=== PATIENT | male | born 1945 | race Hispanic/Latino ===

== ENCOUNTER 2018-05-13 06:21 | Emergency (ER) | payer MEDICARE, OTHER ==
[2018-05-13 06:23] VITALS: BMI 25.1
[2018-05-13 07:00] VITALS: RESP 18
[2018-05-13 07:26] LABS: BASO # 0.01 K/mm3 (0.0-2.0); BASO % 0.1 % (0.0-3.0); EOS % 0.4 % (1.5-5.0); GRAN # 7.19 (1.4-6.5); GRAN % 87.1 % (50.0-68.0); HEMOGLOBIN 15.4 g/dL (14.0-18.0); LYMPH # 0.5 (1.2-3.4); LYMPH % 6.1 % (22.0-35.0); MEAN CELL VOLUME 88.6 fl (80.0-105.0); MEAN CORPUSCULAR HEMOGLOBIN 31.3 pg (25.0-35.0); MEAN CORPUSCULAR HGB CONC 35.3 g/dl (31.0-37.0); MEAN PLATELET VOLUME 11.4 fl (7.0-11.0); MONO # 0.5 (0.1-0.6); MONO % 6.3 % (1.0-6.0); RBC 4.92 10^6/uL (3.5-6.1); RED CELL DISTRIBUTION WIDTH 12.7 % (11.5-14.5); WHITE BLOOD COUNT 8.3 10^3/ul (4.5-11.0)
[2018-05-13 07:27] LABS: URINE BILIRUBIN NEGATIVE (NEGATIVE); URINE BLOOD NEGATIVE (NEGATIVE); URINE GLUCOSE (UA) 100 mg/dL (NEGATIVE); URINE LEUKOCYTE ESTERASE NEGATIVE Leu/uL (NEGATIVE); URINE PROTEIN NEGATIVE mg/dL (<30 mg/dL); URINE UROBILINOGEN 0.2 E.U./dL (<1 E.U./dL)
[2018-05-13 07:28] LABS: URINE APPEARANCE CLEAR (CLEAR); URINE COLOR YELLOW (YELLOW)
--- NOTE | 2018-05-13 07:28 | ED PDOC ---
Arrival/HPI - General Historian: Patient - History of Present Illness Time/Duration: 4-6 hours Symptom Onset: Sudden Symptom Course: Unchanged, Worsening Quality: Aching, Pressure, Throbbing Severity Level: 10 Activities at Onset: Rest <Sd Uribe - Last Filed: 05/13/18 11:48> - General Historian: Patient <Tayo Alonso - Last Filed: 05/13/18 19:43> - General Chief Complaint: Male Genitourinary Time Seen by Provider: 05/13/18 06:23 - History of Present Illness Narrative History of Present Illness (Text): 05/13/18 08:15 Patient is a 72 year old male with PMH of HTN, HLD, and PTSD who presents to ED with worsening R flank pain. He states that about 130 last night it felt as if "a basketball" was bulging out of his R side. He describes the pain as a throbbing, pressure-type sensation that is worse when he turns on his right side or inhales/exhales. The pain radiates to his R mid-abdomen and R groin. He states the pain is constant and worsening since it started last night. He also endorses nausea, vomiting x 6 since last night, diarrhea since last night. He denies fever, chills, CP, SOB, cough, wheezing, trouble urinating, dysuria, hematuria, increased frequency, or any other symptoms. (Sd Uribe) Past Medical History - Provider Review Nursing Documentation Reviewed: Yes - Tetanus Immunization Tetanus Immunization: Up to Date - Cardiac Hx Cardiac Disorders: Yes Hx Hypertension: Yes - Pulmonary Hx Respiratory Disorders: No Hx Tuberculosis: No - Neurological Hx Neurological Disorder: No HX Cerebrovascular Accident: No Hx Seizures: No - HEENT Hx HEENT Disorder: Yes Hx Cataracts: Yes (BILATERAL CATARACT SURGERY) - Renal Hx Renal Disorder: No - Endocrine/Metabolic Hx Endocrine Disorders: No - Hematological/Oncological Hx Blood Disorders: No Hx Cancer: No - Integumentary Hx Dermatological Disorder: No - Musculoskeletal/Rheumatological Hx Musculoskeletal Disorders: No Hx Falls: Yes (RECENT FALL TODAY FROM TAKING MULTIPLE MEDICATION) - Gastrointestinal Hx Gastrointestinal Disorders: No - Genitourinary/Gynecological Hx Genitourinary Disorders: No Hx Sexually Transmitted Diseases: No - Psychiatric Hx Psychophysiologic Disorder: Yes (PTSD) Hx Depression: Yes Hx Emotional Abuse: No Hx Post Traumatic Stress Disorder: Yes Hx Physical Abuse: No Hx Substance Use: Yes (RX DRUGS) - Past Surgical History Past Surgical History: No Previous - Anesthesia Hx Anesthesia: Yes - Suicidal Assessment Feels Threatened In Home Enviroment: No <GavinTayo Last Filed: 05/13/18 19:43> Family/Social History - Physician Review Nursing Documentation Reviewed: Yes Family/Social History: No Known Family HX Smoking Status: Current Some Days Smoker Hx Alcohol Use: Yes Hx Substance Use: Yes (RX DRUGS) <GavinYasminEsperanza - Last Filed: 05/13/18 19:43> Allergies/Home Meds <Sd Uribe - Last Filed: 05/13/18 11:48> <GavinYasminEsperanza - Last Filed: 05/13/18 19:43> Allergies/Adverse Reactions: Allergies No Known Allergies Allergy (Verified 05/13/18 07:37) Home Medications: Home Meds Medication Instructions Recorded Confirmed Bupropion HCl [Bupropion] 100 mg PO DAILY 06/09/13 05/13/18 Trazodone Hydrochloride [Trazodone] 150 mg PO DAILY 06/09/13 05/13/18 FLUoxetine [Prozac] 20 mg PO TID 05/13/18 05/13/18 Review of Systems - Physician Review All systems were reviewed & negative as marked: Yes - Review of Systems Constitutional: absent: Weight Change, Fevers Eyes: absent: Vision Changes, Photophobia ENT: absent: Voice Changes, Sore Throat, Rhinorrhea Respiratory: absent: SOB, Cough, Wheezing Cardiovascular: absent: Chest Pain, NORIEGA Gastrointestinal: Diarrhea, Nausea, Vomiting Genitourinary Male: absent: Dysuria, Frequency, Hematuria, Urinary Output Changes Musculoskeletal: Back Pain. absent: Arthralgias Skin: absent: Rash, Pruritis Neurological: absent: Headache, Dizziness Endocrine: absent: Diaphoresis Hemo/Lymphatic: absent: Adenopathy Psychiatric: absent: Anxiety, Depression <Sd Uribe - Last Filed: 05/13/18 11:48> - Physician Review All systems were reviewed & negative as marked: Yes <Yasmin AlonsoChiara - Last Filed: 05/13/18 19:43> Physical Exam Appearance: Positive for: Ill-Appearing, Uncomfortable Pain Distress: Severe Mental Status: Positive for: Alert and Oriented X 3 - Systems Exam Head: Present: Atraumatic, Normocephalic Pupils: Present: PERRL Extroacular Muscles: Present: EOMI Ears: Present: Normal Mouth: Present: Dry Pharnyx: Present: Normal. No: ERYTHEMA, EXUDATE Nose (External): Present: Atraumatic Neck: Present: Normal Range of Motion. No: JVD Respiratory/Chest: Present: Clear to Auscultation. No: Wheezes, Rales, Rhonchi Cardiovascular: Present: Regular Rate and Rhythm, Normal S1, S2. No: Murmurs, Rub, Gallop Abdomen: Present: Tenderness (tenderness greatest to RLQ and R flank). No: Rebound, Guarding, Mass/Organomegaly Back: Present: Normal Inspection. No: CVA Tenderness Upper Extremity: Present: Normal Inspection. No: Cyanosis, Edema Lower Extremity: Present: Normal Inspection. No: Edema Skin: Present: Warm, Dry. No: Rashes Psychiatric: Present: Alert, Oriented x 3 <Sd Uribe - Last Filed: 05/13/18 11:48> Vital Signs Reviewed: Yes Temperature: Afebrile Blood Pressure: Hypertensive Pulse: Regular Respiratory Rate: Normal <Tayo Alonso - Last Filed: 05/13/18 19:43> Vital Signs Temp Pulse Resp BP Pulse Ox 05/13/18 11:39 98.2 F 82 18 135/90 99 05/13/18 10:00 98.6 F 82 18 132/90 99 05/13/18 08:39 64 18 138/96 H 100 05/13/18 06:46 97.9 F 65 18 143/105 H 100 Medical Decision Making - Lab Interpretations I have reviewed the lab results: Yes Interpretation: All labs normal (no hematuria) - EKG Interpretation Interpreted by ED Physician: Yes (normal sinus) Type: 12 lead EKG <Sd Uribe - Last Filed: 05/13/18 11:48> <Tayo Alonso - Last Filed: 05/13/18 19:43> ED Course and Treatment: 05/13/18 11:10 Patient found to have [address] with mild hydronephrosis. He reports his pain has improved s/p morphine and toradol. Patient states that he would like to follow up with urologist at the [facility] since this is where his PMD and other physicians are located. Patient feels he will be able to go home with pain medicine. Will plan to discharge on percocet, cipro, flomax. He should follow up with urology follow up within 1 week. 05/13/18 11:33 Patient's pain has improved. Will give a single dose of percocet in ED. Sending him home with prescriptions for cipro, flomax, and percocet. (Sd Uribe) 05/13/18 07:30 Impression: Judd Keys is a 72 year old male who presents to the Emergency department for right flank pain. In agreement with resident note, which includes further HPI details. Patient was seen and evaluated with resident, came up with plan and treatment together. Plan: -- Labs -- CT of A/P, PO & IV contrast -- Toradol -- Morphine -- Zofran -- IV fluids -- Urine culture -- Urinalysis -- Reassess and disposition Progress Notes: (Tayo Alonso) - Lab Interpretations Lab Results: 05/13/18 07:20 05/13/18 07:20 Lab Results 05/13/18 07:20: Sodium 141, Potassium 4.1, Chloride 101, Carbon Dioxide 28, Anion Gap 16, BUN 20, Creatinine 1.1, Est GFR ( Amer) > 60, Est GFR (Non- Af Amer) > 60, Random Glucose 148 H, Calcium 9.4, Total Bilirubin 0.5, AST 35, ALT 30, Alkaline Phosphatase 87, Total Protein 7.4, Albumin 4.7, Globulin 2.7, Albumin/Globulin Ratio 1.8 05/13/18 07:20: Urine Color Yellow, Urine Appearance Clear, Urine pH 8.0, Ur Specific Gower 1.010, Urine Protein Negative, Urine Glucose (UA) 100 H, Urine Ketones Negative, Urine Blood Negative, Urine Nitrate Negative, Urine Bilirubin Negative, Urine Urobilinogen 0.2, Ur Leukocyte Esterase Negative 05/13/18 07:20: WBC 8.3, RBC 4.92, Hgb 15.4, Hct 43.6, MCV 88.6, MCH 31.3, MCHC 35.3, RDW 12.7, Plt Count 167, MPV 11.4 H, Gran % 87.1 H, Lymph % (Auto) 6.1 L, [place] % (Auto) 6.3 H, Eos % (Auto) 0.4 L, Baso % (Auto) 0.1, Gran # 7.19 H, Lymph # (Auto) 0.5 L, [place] # (Auto) 0.5, Eos # (Auto) 0.0, Baso # (Auto) 0.01 - RAD Interpretation Radiology Orders: 05/13/18 07:43 ABD PELVIS PO & IV CONTRAST [CT] Stat - Medication Orders Current Medication Orders: Discontinued Medications Ciprofloxacin (Cipro) 500 mg PO ONCE STA PRN Reason: Protocol Stop: 05/13/18 11:08 Last Admin: 05/13/18 11:16 Dose: 500 mg Sodium Chloride (Sodium Chloride 0.9%) 1,000 mls @ 999 mls/hr IV .Q1H1M STA Stop: 05/13/18 08:46 Last Admin: 05/13/18 08:22 Dose: 999 mls/hr eMAR Start Stop Document 05/13/18 08:22 EWO (Rec: 05/13/18 08:22 [facility] [id number]) Intravenous Solution Start Date 05/13/18 Start Time 08:22 End Date 05/13/18 End time 09:22 Total Infusion Time 60 Ketorolac Tromethamine (Toradol) 30 mg IVP STAT STA Stop: 05/13/18 08:13 Last Admin: 05/13/18 08:21 Dose: 30 mg MAR Pain Assessment Document 05/13/18 08:21 EWO (Rec: 05/13/18 08:22 [facility] [id number]) Pain Reassessment Is this a pain reassessment? Yes Sleep Is patient sleeping during reassessment? No Pain Scale Used Pain Scale Used Numeric IVP Administration Document 05/13/18 08:21 EWO (Rec: 05/13/18 08:22 [facility] [id number]) Charges for Administration # of IVP Administrations 1 Morphine Sulfate (Morphine) 4 mg IVP STAT STA Stop: 05/13/18 07:37 Last Admin: 05/13/18 07:44 Dose: 4 mg MAR Pain Assessment Document 05/13/18 07:44 EWO (Rec: 05/13/18 07:44 [facility] [id number]) Pain Reassessment Is this a pain reassessment? No Sleep Is patient sleeping during reassessment? No Presence of Pain Presence of Pain Yes Pain Scale Used Pain Scale Used Numeric Location Left, Right or Bilateral Right Upper or Lower Lower Pain Location Body Site Abdomen IVP Administration Document 05/13/18 07:44 EWO (Rec: 05/13/18 07:44 [facility] [id number]) Charges for Administration # of IVP Administrations 1 Morphine Sulfate (Morphine) 2 mg IVP STAT STA Stop: 05/13/18 10:47 Last Admin: 05/13/18 11:02 Dose: 2 mg MAR Pain Assessment Document 05/13/18 11:02 EWO (Rec: 05/13/18 11:03 [facility] [id number]) Pain Reassessment Is this a pain reassessment? Yes Sleep Is patient sleeping during reassessment? No Presence of Pain Presence of Pain Yes Pain Scale Used Pain Scale Used Numeric Location Left, Right or Bilateral Right Upper or Lower Lower Pain Location Body Site Abdomen Description Description Constant Intensity of Pain at present 4 IVP Administration Document 05/13/18 11:02 EWO (Rec: 05/13/18 11:03 [facility] [id number]) Charges for Administration # of IVP Administrations 1 Ondansetron HCl (Zofran Inj) 4 mg IVP STAT STA Stop: 05/13/18 07:23 Last Admin: 05/13/18 07:44 Dose: 4 mg IVP Administration Document 05/13/18 07:44 EWO (Rec: 05/13/18 07:44 [facility] [id number]) Charges for Administration # of IVP Administrations 1 Oxycodone/Acetaminophen (Percocet 2.5/325 Mg Tab) 1 tab PO STAT STA Stop: 05/13/18 11:31 Last Admin: 05/13/18 11:34 Dose: 1 tab Tamsulosin HCl (Flomax) 0.4 mg PO STAT STA Stop: 05/13/18 10:47 Last Admin: 05/13/18 11:02 Dose: 0.4 mg <Sd Uribe - Last Filed: 05/13/18 11:48> - PA / CEMENT MIXER / Resident Statement / has reviewed & agrees with the documentation as recorded. / has examined the patient and agrees with the treatment plan. - Scribe Statement The provider has reviewed the documentation as recorded by the Scribe <Tayo Alonso - Last Filed: 05/13/18 19:43> - Scribe Statement Tali Kerr All medical record entries made by the Scribe were at my direction and personally dictated by me. I have reviewed the chart and agree that the record accurately reflects my personal performance of the history, physical exam, medical decision making, and the department course for this patient. I have also personally directed, reviewed, and agree with the discharge instructions and disposition. (Gavin,I'Melitonalethea) Disposition/Present on Arrival - Present on Arrival Any Indicators Present on Arrival: No History of DVT/PE: No History of Uncontrolled Diabetes: No Urinary Catheter: No History of Decub. Ulcer: No - Disposition Have Diagnosis and Disposition been Completed?: Yes Disposition Time: 11:24 Patient Plan: Discharge <Sd Uribe - Last Filed: 05/13/18 11:48> - Present on Arrival History of DVT/PE: No History of Uncontrolled Diabetes: No Urinary Catheter: No History of Decub. Ulcer: No History Surgical Site Infection Following: None <Tayo Alonso - Last Filed: 05/13/18 19:43> - Disposition Diagnosis: Nephrolithiasis Disposition: HOME/ ROUTINE Condition: FAIR Discharge Instructions (ExitCare): Kidney Stones (DC) Additional Instructions: We hope that your pain from the stone will improve soon with the medications we' ve given you. We've given you a referral for a local urologist to follow up with. If you'd like to go to the [facility] instead, please set up a urology appointment with them as soon as possible. Be sure to bring a copy of the report of the CT scan of your abdomen we gave you to your urology appointment. We've given you antibiotics to prevent infection since there is fluid in your right kidney from the stone. Please take these twice a day for 10 days. Prescriptions: Ciprofloxacin [Cipro] 500 mg PO Q12H 10 Days tab oxyCODONE/Acetaminophen [Percocet 5/325 mg Tab] 1 ea PO Q6 PRN #18 tab PRN Reason: Pain, Severe (8-10) Psyllium [Hydrocil Instant] 1 each PO BID PRN #20 packet PRN Reason: constipation Sennosides [Senna] 8.6 mg PO HS PRN #20 tablet PRN Reason: Constipation Tamsulosin [Flomax] 0.4 mg PO DAILY 14 Days cap Referrals: Mahsa Eastman MD [Staff Provider] - Follow up with primary Forms: [employer] (Yoruba)
[2018-05-13] MEDS ORDERED: Morphine 4 mg/ml ISec IVP STA (07:36)
[2018-05-13 07:41] LABS: ALB/GLOB RATIO 1.8 (1.1-1.8); ALBUMIN 4.7 g/dL (3.0-4.8); ALT/SGPT 30 U/L (7-56); AST/SGOT 35 U/L (17-59); BLOOD UREA NITROGEN 20 mg/dL (7-21); CALCIUM 9.4 mg/dL (8.4-10.5); GFR AFRICAN-AMERICAN > 60; GFR NON-AFRICAN AMERICAN > 60
[2018-05-13] MEDS ORDERED: Sodium Chloride 0.9% 1,000 ML IV STA (07:46)
[2018-05-13] MEDS ORDERED: Iohexol 240 (50 ml) ONE (08:22)
[2018-05-13] MEDS ORDERED: Iohexol 350 MG/100 ML VIAL ONE (08:23)
[2018-05-13] MEDS ORDERED: Morphine 2 mg/ml ISec IVP STA (10:46)
--- NOTE | 2018-05-13 10:55 | CT ---
Date of service: 05/13/2018 PROCEDURE: CT Abdomen and Pelvis with contrast HISTORY: rt sided acute abdomen COMPARISON: None. TECHNIQUE: Contrast dose: 100 cc of Omni 350 Radiation dose: Total exam DLP = 419 mGy-cm. This CT exam was performed using one or more of the following dose reduction techniques: Automated exposure control, adjustment of the mA and/or kV according to patient size, and/or use of iterative reconstruction technique. FINDINGS: LOWER THORAX: Unremarkable. LIVER: Unremarkable. No gross lesion or ductal dilatation. GALLBLADDER AND BILE DUCTS: Unremarkable. PANCREAS: Unremarkable. No gross lesion or ductal dilatation. SPLEEN: Unremarkable. ADRENALS: Unremarkable. No mass. KIDNEYS AND URETERS: There is a 3 mm stone in the right UVJ. There is a large amount of perinephric stranding and fluid in the right perinephric space. There is mild hydronephrosis. The findings are seen on axial image 157 series 3 and coronal image 70. VASCULATURE: Unremarkable. No aortic aneurysm. BOWEL: Unremarkable. No obstruction. No gross mural thickening. APPENDIX: Normal appendix. PERITONEUM: Unremarkable. No free fluid. No free air. LYMPH NODES: Unremarkable. No enlarged lymph nodes. BLADDER: Unremarkable. REPRODUCTIVE: Unremarkable. BONES: No acute fracture. OTHER FINDINGS: None. IMPRESSION: There is a 3 mm obstructing stone in the right UVJ. There is a large amount of perinephric stranding and fluid in the right perinephric space. There is mild hydronephrosis.
[2018-05-13 11:13] VITALS: PULSE 82; O2SAT 99
[2018-05-13] MEDS ORDERED: Oxycodone/Acetaminophen 2.5/325 mg Tab PO STA (11:30)
[2018-05-13 11:47] VITALS: BP 135/90; TEMP 98.2
--- NOTE | 2018-05-14 05:27 | CARD ---
APPROVED REPORT Date of service: 05/13/2018 EKG Measurement Heart [id number] 142P [id number] <Conclusion> Ectopic atrial rhythm Abnormal ECG
== END 2018-05-13 11:39 | disposition home or self-care (01) ==
LOC: ED 06:21
DX: N20.0 Calculus of kidney (principal); E78.5 Hyperlipidemia, unspecified; I10 Essential (primary) hypertension
CPT/HCPCS: 74177; 80053; 81003; 85025; 87086; 93005; 96361; 96374; 96375; 96376; 99284; J1885; J2270; J2405; J7030; Q9966; Q9967

== ENCOUNTER 2019-01-24 23:21 | Emergency (ER) | payer MEDICARE, OTHER ==
[2019-01-24 23:22] VITALS: BMI 25.8
--- NOTE | 2019-01-24 23:43 | ED PDOC ---
Arrival/HPI - General Chief Complaint: Back Pain Time Seen by Provider: 01/24/19 23:25 Historian: Patient - History of Present Illness Narrative History of Present Illness (Text): 01/24/19 23:41 73 year old male, whose past medical history includes HTN, HLD, and PTSD, presents to the emergency department complaining of left-side ribcage pain that began 1 week ago s/p trip and fall down the stairs. Patient reports the pain worsens with deep breaths. Patient states he was carrying the laundry basket down the stairs when he tripped and fell. Patient denies any head injuries. Patient is able to ambulate without any difficulty. Patient denies any fever, chills, chest pain, shortness of breath, nausea, vomiting, diarrhea, urinary symptoms, back pain, neck pain, headache, dizziness, or any other complaints. Time/Duration: 1 week Symptom Onset: Gradual Symptom Course: Worsening Activities at Onset: Light Context: Tripped Past Medical History - Provider Review Nursing Documentation Reviewed: Yes - Tetanus Immunization Tetanus Immunization: Up to Date - Cardiac Hx Cardiac Disorders: Yes Hx Hypertension: Yes - Pulmonary Hx Respiratory Disorders: No Hx Tuberculosis: No - Neurological Hx Neurological Disorder: No HX Cerebrovascular Accident: No Hx Seizures: No - HEENT Hx HEENT Disorder: Yes Hx Cataracts: Yes (BILATERAL CATARACT SURGERY) - Renal Hx Renal Disorder: No - Endocrine/Metabolic Hx Endocrine Disorders: No - Hematological/Oncological Hx Blood Disorders: No Hx Cancer: No - Integumentary Hx Dermatological Disorder: No - Musculoskeletal/Rheumatological Hx Musculoskeletal Disorders: No Hx Falls: Yes (RECENT FALL TODAY FROM TAKING MULTIPLE MEDICATION) - Gastrointestinal Hx Gastrointestinal Disorders: No - Genitourinary/Gynecological Hx Genitourinary Disorders: No Hx Sexually Transmitted Diseases: No - Psychiatric Hx Psychophysiologic Disorder: Yes (PTSD) Hx Depression: Yes Hx Emotional Abuse: No Hx Post Traumatic Stress Disorder: Yes Hx Physical Abuse: No Hx Substance Use: Yes (RX DRUGS) - Past Surgical History Past Surgical History: No Previous - Anesthesia Hx Anesthesia: Yes - Suicidal Assessment Feels Threatened In Home Enviroment: No Family/Social History - Physician Review Nursing Documentation Reviewed: Yes Family/Social History: No Known Family HX Smoking Status: Current Some Days Smoker Hx Alcohol Use: Yes Hx Substance Use: Yes (RX DRUGS) Allergies/Home Meds Allergies/Adverse Reactions: Allergies No Known Allergies Allergy (Verified 01/24/19 23:23) Home Medications: Home Meds Medication Instructions Recorded Confirmed Fluoxetine HCl 20 mg PO DAILY 01/24/19 01/24/19 Fluoxetine HCl 60 mg PO DAILY 01/24/19 01/24/19 Omeprazole 20 mg PO DAILY 01/24/19 01/24/19 Rosuvastatin Calcium [Crestor] 10 mg PO DAILY 01/24/19 01/24/19 Trazodone HCl 200 mg PO HS PRN 01/24/19 01/24/19 amLODIPine [Norvasc] 5 mg PO DAILY 01/24/19 01/24/19 Review of Systems - Physician Review All systems were reviewed & negative as marked: Yes - Review of Systems Constitutional: absent: Fevers, Other (chills) Gastrointestinal: absent: Abdominal Pain, Diarrhea, Nausea, Vomiting Musculoskeletal: Other (left-side rib cage pain). absent: Back Pain, Neck Pain Neurological: absent: Headache, Dizziness Physical Exam Vital Signs Reviewed: Yes Vital Signs Temp Pulse Resp BP Pulse Ox 01/24/19 23:32 98.2 F 64 15 136/80 96 Temperature: Afebrile Blood Pressure: Normal Pulse: Regular Respiratory Rate: Normal Appearance: Positive for: Well-Appearing, Non-Toxic, Comfortable Pain Distress: None Mental Status: Positive for: Alert and Oriented X 3 - Systems Exam Head: Present: Atraumatic, Normocephalic Pupils: Present: PERRL Extroacular Muscles: Present: EOMI Conjunctiva: Present: Normal Mouth: Present: Moist Mucous Membranes Neck: Present: Normal Range of Motion Respiratory/Chest: Present: Clear to Auscultation, Good Air Exchange, Tender to Palpation (left side rib tenderness). No: Respiratory Distress, Accessory Muscle Use Cardiovascular: Present: Regular Rate and Rhythm, Normal S1, S2. No: Murmurs Abdomen: No: Tenderness, Distention, Peritoneal Signs Back: Present: Normal Inspection Upper Extremity: Present: Normal Inspection. No: Cyanosis, Edema Lower Extremity: Present: Normal Inspection. No: Edema Neurological: Present: GCS=15, CN II-XII Intact, Speech Normal Skin: Present: Warm, Dry, Normal Color. No: Rashes Psychiatric: Present: Alert, Oriented x 3, Normal Insight, Normal Concentration Medical Decision Making ED Course and Treatment: ubaldo disla pneumo 01/24/19 23:43 Impression: 73 year old male presents complaining of left-side ribcage pain s/p fall down the stairs. Plan: -- Toradol -- rib left chest x-ray -- CT chest w/ IV contrast -- Reassess and disposition Prior Visits: Notes and results from previous visits were reviewed. Progress Notes: CXR Impression: As read by me, Negative for fractures. No active disease. CT OF THE CHEST WITH IV CONTRAST Electronically signed on Jan 25, 2019 4:04:18 AM EDT by: Janet Lombardo M.D. IMPRESSION: No evidence of acute abdominal or pelvic pathology. 01/25/19 04:15 xr neg as read by me. ct neg for acute pathology. pain improved. labs neg. pt in nad. steady gait advise outpt fu. 01/25/19 04:15 PRELIMINARY REPORT [facility] [address] @ [place] [address] Phone: [phone] Report Submission Date: Jan 25, 2019 4:04:18 AM EDT Name: MARIA ELENA VARGAS Exam Date: Jan 25, 2019 2:26:32 AM EDT Modality Type: CT\SD\CT\SR Description: CT - CHEST, ABDOMEN & PELVIS WITH CORONAL AND SAGITTAL MPRS Gender: M Laterality: Not applicable : 49 Referring Physician: Dr. Dung Escobedo CT OF THE CHEST WITH IV CONTRAST CLINICAL HISTORY: Fall down stairs, left side rib pain/flank pain (Hx). TECHNIQUE: Axial and reformatted sagittal and coronal images of the chest obtained after bolus IV contrast administration. COMPARISON: 05/13/2018 10:22 AM EDT: CT\SD\SR: ABD PELVIS PO IV CONTRAST. FINDINGS: Bilateral basilar subsegmental atelectatic pulmonary changes. Normal enhancement of the main pulmonary artery and right and left pulmonary ar teries. Normal enhancement of the bilateral peripheral pulmonary arteries. There is no demonstrated pulmonary embolism. Normal thoracic aorta and visualized great vessels. There is no demonstrated aortic dissection. Mildly enlarged heart and normal pericardium. Normal mediastinum. Normal hilar regions. Normal visualized trachea and bronchi. Normal pleura. Normal chest wall structures. Normal osseous structures. Normal visualized upper abdomen. IMPRESSION: Bilateral basilar subsegmental atelectatic pulmonary changes. Otherwise, no acute traumatic pathology seen. CT SCAN OF THE ABDOMEN AND PELVIS WITH CONTRAST. CLINICAL HISTORY: fall down stairs, left side rib pain/flank pain (Hx) TECHNIQUE: Multiple axial and coronal CT images were obtained through the abdomen and pelvis after administration of intravenous contrast material. Comparison: 05/13/2018 10:22 AM EDT: CT\SD\SR: ABD PELVIS PO IV CONTRAST COMMENTS: Scattered well-defined hypodense hepatic lesions with the largest measuring 2.5 cm, benign and chronic. There is no intra or extrahepatic biliary ductal dilatation. The spleen is normal. The gallbladder is within normal limits. The pancreas is of normal contour and attenuation characteristics. There is no evidence of adrenal mass. Bilateral simple renal cysts are noted. Bilateral nonobstructing renal stones with largest measuring 4 mm. Both kidneys demonstrate prompt and equal nephrograms. The kidneys are normal in size, shape and configuration. There is no evidence of renal or ureteral mass. No ureteral calculi are identified. There is no hydroureter or hydronephrosis. No evidence for appendicitis. There is no bowel wall thickening. No evidence for small or large bowel obstruction. There is no evidence of abdominal ascites or lymphadenopathy. Uncomplicated colonic diverticulosis. There is no evidence of intrinsic or extrinsic bladder mass. There is no pelvic ascites or lymphadenopathy. Mild prostatomegaly. There are no pleural effusions. The bony structures are free of lytic or blastic lesions. IMPRESSION: No evidence of acute abdominal or pelvic pathology. Thank you for your kind referral of this patient. Electronically signed on Jan 25, 2019 4:04:18 AM EDT by: Janet Lombardo M.D., Certified by [facility], MSK, Neuroradiology 01/25/19 04:43 ct neg. pain improved. neuor intact. steady gait stable for dc - RAD Interpretation Radiology Orders: 01/24/19 23:37 RIBS LEFT & PA CHEST [RAD] [employer] Systems Software Developer: ED Physician - Medication Orders Current Medication Orders: Ketorolac Tromethamine (Toradol) 30 mg IM STAT STA Stop: 01/24/19 23:38 Discontinued Medications Ketorolac Tromethamine (Toradol) 30 mg IVP STAT STA Stop: 01/24/19 23:38 - Scribe Statement The provider has reviewed the documentation as recorded by the Layne Gallardo Provider Scribe Attestation: All medical record entries made by the Shayibray were at my direction and personally dictated by me. I have reviewed the chart and agree that the record accurately reflects my personal performance of the history, physical exam, medical decision making, and the department course for this patient. I have also personally directed, reviewed, and agree with the discharge instructions and disposition. Disposition/Present on Arrival - Present on Arrival Any Indicators Present on Arrival: No History of DVT/PE: No History of Uncontrolled Diabetes: No Urinary Catheter: No History of Decub. Ulcer: No History Surgical Site Infection Following: None - Disposition Have Diagnosis and Disposition been Completed?: Yes Diagnosis: Fall, Back pain Disposition: HOME/ ROUTINE Disposition Time: 03:00 Patient Problems: Current Active Problems Problem Status Onset Back pain Acute Fall Acute Condition: STABLE Discharge Instructions (ExitCare): Low Back Pain in Adults, Preventing Falls Prescriptions: Cyclobenzaprine [Cyclobenzaprine HCl] 10 mg PO DAILY PRN #10 tab PRN Reason: Muscle Spasm Naproxen 500 mg PO BID PRN #14 tab PRN Reason: Pain, Mild (1-3) Referrals: Patrick Burnham MD [Primary Care Provider] - Follow up with primary Visco,Ok Weiss MD [Staff Provider] - Follow up with primary Forms: easyfolio (Malagasy)
[2019-01-25 01:08] LABS: ALB/GLOB RATIO 1.4 (1.1-1.8); ALT/SGPT 15 U/L (7-56); AST/SGOT 22 U/L (17-59); BLOOD UREA NITROGEN 16 mg/dL (7-21); CALCIUM 9.2 mg/dL (8.4-10.5); GFR NON-AFRICAN AMERICAN > 60; INR 1.05; PARTIAL THROMBOPLASTIN TIME 30.3 Seconds (26.9-38.3); PROTHROMBIN TIME 11.6 SECONDS (9.4-12.5)
[2019-01-25 01:17] LABS: BASO # 0.03 K/mm3 (0.0-2.0); BASO % 0.5 % (0.0-3.0); EOS # 0.1 (0.0-0.7); EOS % 1.2 % (1.5-5.0); HEMOGLOBIN 14.6 g/dL (14.0-18.0); LYMPH # 0.8 (1.2-3.4); MEAN CELL VOLUME 89.4 fl (80.0-105.0); MEAN CORPUSCULAR HEMOGLOBIN 30.4 pg (25.0-35.0); MEAN PLATELET VOLUME 10.3 fl (7.0-11.0); MONO # 0.9 (0.1-0.6); MONO % 15.3 % (1.0-6.0); RBC 4.8 10^6/uL (3.5-6.1); RED CELL DISTRIBUTION WIDTH 12.7 % (11.5-14.5)
[2019-01-25 03:12] VITALS: BP 137/87; PULSE 62; RESP 14; TEMP 97.8; O2SAT 97
--- NOTE | 2019-01-25 11:11 | CT ---
Date of service: 01/25/2019 PROCEDURE: CT Chest, Abdomen and Pelvis with intravenous contrast HISTORY: fall down stairs, left side rib pain/flank pain COMPARISON: 05/13/2018. CT abdomen and pelvis. January 24, 2019. Rib radiographs TECHNIQUE: IV dose administered: 150 cc Omnipaque 350. Radiation dose: Total exam DLP = 586.75 mGy-cm. This CT exam was performed using one or more of the following dose reduction techniques: Automated exposure control, adjustment of the mA and/or kV according to patient size, and/or use of iterative reconstruction technique. FINDINGS: CT CHEST WITH CONTRAST: LUNGS: Atelectasis/scarring at the lung bases a stable finding. No nodule, mass or consolidation. MEDIASTINUM: Unremarkable. Normal caliber aorta and pulmonary arterial trunk. No aortic dissection. Normal size heart. LYMPH NODES: Unremarkable. PLEURA: Unremarkable. No pneumothorax. No pleural fluid. BONES: Unremarkable. OTHER FINDINGS: None. CT ABDOMEN AND PELVIS: LIVER: Stable mass right hepatic lobe 2.1 cm consistent with hemangioma. Innumerable simple cysts in both lobes the preponderance of which are 1 cm or less. With contrast-enhancing characteristics consistent with hemangioma GALLBLADDER AND BILE DUCTS: Distended gallbladder. No gallstones identified. PANCREAS: Unremarkable. No gross lesion or ductal dilatation. SPLEEN: Unremarkable. ADRENALS: Unremarkable. No mass. KIDNEYS AND URETERS: Multiple bilateral nonobstructing calculi none larger than 3 mm. VASCULATURE: No aortic atherosclerotic calcification or mural plaque present. Unremarkable. No aortic aneurysm. BOWEL: Diverticulosis without an acute inflammatory component or other associated pathologic process.. Constipation without fecal impaction or obstruction. APPENDIX: A normal appendix is visualized in it's entirety. PERITONEUM: Unremarkable. No free fluid. No free air. LYMPH NODES: Unremarkable. No enlarged lymph nodes. BLADDER: Unremarkable. REPRODUCTIVE: Unremarkable. BONES: No acute fracture. OTHER FINDINGS: None. IMPRESSION: THORAX: Atelectatic changes the lung bases, stable findings. No evidence of chest wall injury, rib fracture other pathologic process ABDOMEN RETROPERITONEUM AND PELVIS: No acute or significant findings related to/ accounting for the clinical presentation. Additional benign and/or incidental findings described above. No significant interval change compared to the prior examination(s).. Concordant results (preliminary interpretation) provided by ATIF GRIFFIN. Procedure Completed: 02:39. Preliminary Report: Interpreted and electronically signed: 04:04. Final Interpretation: 11:07.
--- NOTE | 2019-01-25 15:03 | RAD ---
Date of service: 01/24/2019 PROCEDURE: Radiographs of the Chest and Left Ribs. HISTORY: trauma COMPARISON: None available. TECHNIQUE: Frontal radiograph of the chest and multiple oblique radiographs of the left ribs were obtained. 4 views obtained. FINDINGS: LEFT RIBS: There is a nondisplaced fracture of the left lateral 6th rib. LUNGS: Clear. PLEURA: No pneumothorax or pleural fluid. CARDIOVASCULAR: Normal cardiac size. No pulmonary vascular congestion. No aortic atherosclerotic calcification present OTHER FINDINGS: None. IMPRESSION: There is a nondisplaced fracture of the left lateral 6th rib.
== END 2019-01-25 04:38 | disposition home or self-care (01) ==
LOC: ED 23:21
DX: M54.5 Low back pain (principal); W10.9XXA Fall (on) (from) unspecified stairs and steps, initial encounter; I10 Essential (primary) hypertension; E78.5 Hyperlipidemia, unspecified; F17.210 Nicotine dependence, cigarettes, uncomplicated
CPT/HCPCS: 71101; 71260; 74177; 80053; 85025; 85610; 85730; 96372; 99282; J1885; Q9967